=== PATIENT | female | born 1975 | race Caucasian/White ===

== ENCOUNTER 2017-04-06 19:15 | Emergency (ER) | payer MEDICAID ==
[~2017-04-06] VITALS: Ht 162.6 cm; Wt 73.3 kg
[2017-04-06] MEDS ORDERED: SODIUM CHLORIDE FLUSH 10ML SYR IVF ONE (19:30)
[2017-04-06 19:44] LABS: HEMATOCRIT 36.5 % (34.6-47.8); HEMOGLOBIN 12.2 g/dL (11.7-16.4); WHITE BLOOD COUNT 6.9 x10^3/uL (3.4-10)
[2017-04-06 19:58] LABS: BLOOD UREA NITROGEN 8 mg/dL (7-18)
[2017-04-06 20:01] LABS: ASPARTATE AMINO TRANSFERASE 14 U/L (15-37)
[2017-04-06 20:16] LABS: IS PT STATUS REG ER OR PRE ER? YES
[2017-04-06] MEDS ORDERED: MORPHINE SULFATE 4 MG/ML, 1ML IVPush ONE (20:30)
[2017-04-06] MEDS ORDERED: MAALOX/HYOSCYAMINE/LIDOCAINE 45 ML BTL PO ONE (20:30)
[2017-04-06] MEDS ORDERED: MORPHINE SULFATE 4 MG/ML, 1ML ONE (20:31)
[2017-04-06] MEDS ORDERED: MAALOX/HYOSCYAMINE/LIDOCAINE 45 ML BTL ONE (20:32)
[2017-04-06 21:21] VITALS: BP 137/74
== END 2017-04-06 21:25 | disposition home or self-care (01) ==
LOC: ED 21:00
DX: R10.13 Epigastric pain (principal); R10.12 Left upper quadrant pain
CPT/HCPCS: 36415; 76700; 80053; 81003; 83690; 84484; 85025; 93005; 96374

== ENCOUNTER 2017-04-13 19:30 | Emergency (ER) | payer MEDICAID ==
[~2017-04-13] VITALS: Ht 162.6 cm; Wt 72.1 kg
[2017-04-13 19:31] VITALS: BP 128/82
== END 2017-04-13 21:52 | disposition home or self-care (01) ==
LOC: ED 21:20
DX: N60.02 Solitary cyst of left breast (principal)
CPT/HCPCS: 76641; 99284